=== PATIENT | female | born 1940 | race Caucasian/White ===

== ENCOUNTER 2018-10-10 10:06 | Emergency (ER) | payer MEDICARE, BC ==
[~2018-10-10] VITALS: Ht 172.7 cm; Wt 96.0 kg
[2018-10-10] MEDS ORDERED: FLECAINIDE50 MG PO (10:22)
[2018-10-10] MEDS ORDERED: DIOVAN320 MG PO (10:22)
[2018-10-10] MEDS ORDERED: GLIPIZIDE ER5 MG PO (10:22)
[2018-10-10] MEDS ORDERED: AMLODIPINE10 MG PO (10:23)
[2018-10-10] MEDS ORDERED: ATORVASTATIN CA20 MG PO (10:23)
[2018-10-10] MEDS ORDERED: ATENOLOL50 MG PO (10:23)
[2018-10-10] MEDS ORDERED: MELATONIN CR10 MG PO (10:24)
[2018-10-10] MEDS ORDERED: CRANBERRY PO (10:25)
[2018-10-10] MEDS ORDERED: D31000 UNI1 PO (10:25)
[2018-10-10] MEDS ORDERED: B121000 MCG PO (10:26)
[2018-10-10 10:50] LABS: URINE BILIRUBIN - DIPSTICK NEGATIVE (NEGATIVE); URINE BLOOD DIPSTICK SMALL (NEGATIVE); URINE COLOR YELLOW; URINE GLUCOSE - DIPSTICK >=1000 mg/dL (NEGATIVE); URINE KETONE NEGATIVE (NEGATIVE); URINE NITRITE - DIPSTICK NEGATIVE (Negative); URINE PROTEIN - DIPSTICK NEGATIVE (NEG-TRACE); URINE UROBILINOGEN - DIPSTICK 0.2 E.U./dL (0.2)
[2018-10-10 10:53] LABS: URINE CLARITY CLOUDY; URINE LEUK ESTERASE SMALL (NEGATIVE)
[2018-10-10 11:00] LABS: URINE BACTERIA RARE hpf; URINE SQUAMOUS EPITHELIAL CELL FEW EPI/hpf (0-FEW)
[2018-10-10] MEDS ORDERED: PYRIDIUM200 MG PO (11:03)
[2018-10-10] MEDS ORDERED: BACTRIM DS1 TAB PO (11:03)
[2018-10-10 11:10] VITALS: BP 113/76
== END 2018-10-10 11:10 | disposition home or self-care (01) ==
LOC: ED 10:06
PROVIDERS: Emergency Medicine
DX: N39.0 Urinary tract infection, site not specified (principal); E11.9 Type 2 diabetes mellitus without complications; I10 Essential (primary) hypertension; B96.20 Unspecified Escherichia coli [E. coli] as the cause of diseases classified elsewhere; Z87.440 Personal history of urinary (tract) infections

== ENCOUNTER 2020-01-16 | Emergency (ER) | payer MEDICARE, BC ==
[~2020-01-16] MED LIST: AMLODIPINE10 MG PO; ATENOLOL50 MG PO; ATORVASTATIN CA20 MG PO; B121000 MCG PO; BACTRIM DS1 TAB PO; CRANBERRY PO; D31000 UNI1 PO; DIOVAN320 MG PO; FLECAINIDE50 MG PO; GLIPIZIDE ER5 MG PO; MELATONIN CR10 MG PO; PYRIDIUM200 MG PO
[2020-01-16] MEDS ORDERED: CEPHALEXIN500 M1 PO (08:40)
[2020-01-16 08:43] LABS: URINE BILIRUBIN - DIPSTICK NEGATIVE (NEGATIVE); URINE BLOOD DIPSTICK TRACE-INTACT (NEGATIVE); URINE COLOR ORANGE; URINE GLUCOSE - DIPSTICK 250 mg/dL (NEGATIVE); URINE KETONE NEGATIVE (NEGATIVE); URINE LEUK ESTERASE MODERATE (NEGATIVE); URINE NITRITE - DIPSTICK POSITIVE (Negative); URINE PROTEIN - DIPSTICK 100 mg/dL (NEG-TRACE); URINE UROBILINOGEN - DIPSTICK >=8.0 E.U./dL (0.2)
[2020-01-16 08:54] LABS: URINE BACTERIA FEW hpf; URINE SQUAMOUS EPITHELIAL CELL FEW EPI/hpf (0-FEW); URINE WBC 20-50 WBC/hpf (0-5)
== END 2020-01-16 09:05 | disposition home or self-care (01) ==
PROVIDERS: Family Medicine
DX: N39.0 Urinary tract infection, site not specified (principal); I10 Essential (primary) hypertension; E11.9 Type 2 diabetes mellitus without complications; Z79.84 Long term (current) use of oral hypoglycemic drugs; Z87.440 Personal history of urinary (tract) infections